=== PATIENT | female | born 2000 | race Caucasian/White ===

== ENCOUNTER 2023-01-03 22:45 | Emergency (ER) | payer OTHER ==
[~2023-01-03] VITALS: Ht 165.1 cm; Wt 72.6 kg
[2023-01-03 23:21] VITALS: BP 144/85
[2023-01-04] MEDS ORDERED: AMOX-1230 PO (00:29)
[2023-01-04] MEDS ORDERED: AMOXIL/CLAVULANATE 875/125 MG 1 TAB PO ONE (00:30)
[2023-01-04 00:44] VITALS: BP 144/85
--- NOTE | 2023-01-04 00:44 | NUR ---
Patient discharged with v/s stable. Written and verbal after care instructions given and explained. New rx augmentin. Patient verbalized understanding. Ambulatory with steady gait. All questions addressed prior to discharge. Advised to follow up with PMD.
== END 2023-01-04 00:44 | disposition home or self-care (01) ==
LOC: MED 22:45
DX: S50.812A Abrasion of left forearm, initial encounter (principal); W55.01XA Bitten by cat, initial encounter; Y93.89 Activity, other specified; Y92.89 Other specified places as the place of occurrence of the external cause; Y99.8 Other external cause status
CPT/HCPCS: 99283